=== PATIENT | female | born 1950 | race Caucasian/White ===

== ENCOUNTER 2023-05-27 07:46 | Day surgery (SDC) | payer OTHER ==
[2023-05-27] MEDS ORDERED: Epinephrine Preservative Free 1 MG/ML IJ ONE (07:47)
[2023-05-27] MEDS ORDERED: cefUROXime sodium 0.005 GM in Sodium Chloride Flush 30 ML*** 0.5 ML IJ ONE (08:00)
[2023-05-27] MEDS ORDERED: TETRACAINE 0.5% STERI-UNIT SOL OP ONE ×2 (08:00)
[2023-05-27] MEDS ORDERED: Ak-Dilate OPHTHALMIC*** 1.065 ML, Cyclogyl 1% OPHTH SOL 1.065 ML, GATIFLOXACIN 0.5% OPH... OP ONE ×4 (08:00)
[2023-05-27] MEDS ORDERED: BETADINE 5% OPHTHALMIC 30 ML OP ONE (08:00)
[2023-05-27] MEDS ORDERED: Lactated Ringers 1,000 ML IV SCH (08:00)
[2023-05-27] MEDS ORDERED: NON-FORMULARY ITEM OP ONE (08:00)
[2023-05-27] MEDS ORDERED: Lactated Ringers 1,000 ML IV ONE (08:27)
[2023-05-27 08:45] VITALS: RESP 18
[2023-05-27] MEDS ORDERED: ACETAZOLAMIDE 250 MG TABLET PO ONE (10:00)
[2023-05-27] MEDS ORDERED: Zofran 4 MG/2 ML VIAL IV PRN (10:00)
[2023-05-27] MEDS ORDERED: Versed 2 MG/2 ML Injection ONE (11:43)
[2023-05-27] MEDS ORDERED: SUBLIMAZE 100 MCG/2 ML ONE (11:43)
[2023-05-27] MEDS ORDERED: DIPRIVAN 200 MG/20 ML IV ONE (11:59)
[2023-05-27 12:22] VITALS: TEMP 97.6
[2023-05-27 12:25] VITALS: PULSE 75
[2023-05-27 12:30] VITALS: O2SAT 95
[2023-05-27 12:34] VITALS: BP 129/81
== END 2023-05-27 12:38 | disposition home or self-care (01) ==
LOC: SDC 07:46
PROVIDERS: ATTEND Ophthalmology
DX: H25.811 Combined forms of age-related cataract, right eye (principal)
CPT/HCPCS: J0171; J2250; J2704; J3010; A9270-GY

== ENCOUNTER 2023-06-24 09:01 | Day surgery (SDC) | payer OTHER ==
[~2023-06-24 09:01] MED LIST: Ak-Dilate OPHTHALMIC*** 1.065 ML, Cyclogyl 1% OPHTH SOL 1.065 ML, GATIFLOXACIN 0.5% OPH... OP ONE; BETADINE 5% OPHTHALMIC 30 ML OP ONE; Lactated Ringers 1,000 ML IV SCH; NON-FORMULARY ITEM OP ONE; TETRACAINE 0.5% STERI-UNIT SOL OP ONE; cefUROXime sodium 0.005 GM in Sodium Chloride Flush 30 ML*** 0.5 ML IJ ONE
[2023-06-24] MEDS ORDERED: Epinephrine Preservative Free 1 MG/ML IJ ONE (09:02)
[2023-06-24 09:30] VITALS: RESP 20
[2023-06-24] MEDS ORDERED: Lactated Ringers 1,000 ML IV ONE (09:38)
[2023-06-24] MEDS ORDERED: ACETAZOLAMIDE 250 MG TABLET PO ONE (11:00)
[2023-06-24] MEDS ORDERED: Zofran 4 MG/2 ML VIAL IV PRN (11:00)
[2023-06-24] MEDS ORDERED: DIPRIVAN 200 MG/20 ML IV ONE (11:45)
[2023-06-24] MEDS ORDERED: SUBLIMAZE 100 MCG/2 ML ONE (11:54)
[2023-06-24 12:11] VITALS: TEMP 97.6
[2023-06-24 12:17] VITALS: O2SAT 95
[2023-06-24 12:26] VITALS: BP 106/73; PULSE 54
== END 2023-06-24 12:29 | disposition home or self-care (01) ==
LOC: SDC 09:01
PROVIDERS: ATTEND Ophthalmology
DX: H25.812 Combined forms of age-related cataract, left eye (principal); I10 Essential (primary) hypertension
CPT/HCPCS: 93005; C1780; J0171; J2704; J3010; A9270-GY